=== PATIENT | male | born 1980 | race Caucasian/White ===

== ENCOUNTER → 2021-10-12 | Outpatient (CLI) | payer BC ==
[2021-10-12 14:23] LABS: Basophils # (A) 0.05 X 10*3/uL (0.00-0.10); Basophils % (A) 1.3 %; Eosinophils # (A) 0.09 X 10*3/uL (0.04-0.35); Eosinophils % (A) 2.4 %; HGB 16.1 g/dL (13.0-17.0); Immature Grans, Automated 0.3 %; Lymphocytes # (A) 1.25 X 10*3/uL (0.90-5.00); Lymphocytes % (A) 33.5 %; MCH 32.7 pg (27.0-32.0); MCHC 33.5 g/dL (32.0-37.0); MCV 97.6 fL (80.0-97.0); Monocytes # (A) 0.53 X 10*3/uL (0.20-1.00); Monocytes % (A) 14.2 %; NRBC Per 100 WBC 0 /100 WBCS (0.0-0.0); Neutrophils % (A) 48.3 %; Platelet Count 290 X 10*3/uL (140-440); RBC 4.92 X 10*6/uL (4.40-5.60); RDW 11.9 % (11.5-14.5); WBC 3.73 X 10*3/uL (4.50-10.00)
[2021-10-12 14:47] LABS: Carbon Dioxide 25.9 mmol/L (20.0-27.5); Potassium 4.3 mmol/L (3.5-5.5)
== END | disposition home or self-care (01) ==
LOC: LABPAT 08:16
PROVIDERS: ATTEND Orthopaedic Surgery
DX: Z01.812 Encounter for preprocedural laboratory examination (principal); M23.91 Unspecified internal derangement of right knee; M23.611 Other spontaneous disruption of anterior cruciate ligament of right knee
CPT/HCPCS: 80051; 85025

== ENCOUNTER 2021-10-22 05:58 | Day surgery (SDC) | payer BC ==
[2021-10-20 15:05] VITALS: BMI 26.6
--- NOTE | 2021-10-21 17:16 | HP ---
HISTORY AND PHYSICAL DATE OF SURGERY: 10/22/2021 Quinn Hernandez is a 41-year-old patient with progressive right knee pain and instability. We discussed options and he elected to proceed with right knee arthroscopy to include allograft, anterior cruciate ligament reconstruction and partial medial/lateral meniscectomy. Consent was obtained. PAST MEDICAL HISTORY: Noncontributory. SURGICAL HISTORY: ACL reconstruction. DAILY MEDICATIONS: None. ALLERGIES: NONE. SOCIAL HISTORY: He denies tobacco use. PHYSICAL EVALUATION OF THE RIGHT KNEE: His range of motion is zero to 130. Mild effusion. Tenderness along the medial joint line. Plus 2 to 3 Beatrice's, soft endpoint, positive pivot shift. Distal neurovascular exam intact. Radiographs of the right knee revealed evidence for previous ACL reconstruction with mild osteoarthritic changes. MRI of the right knee revealed ACL graft tear, medial meniscal tear, lateral meniscal tear, osteoarthritis and effusion. IMPRESSION: 1. Internal derangement of right knee with ACL tear, medial meniscal tear, lateral meniscal tear. 2. Right knee osteoarthritis. PLAN: Right knee arthroscopy with allograft, ACL reconstruction, partial medial/lateral meniscectomy and debridement. MMODL / IJN: [id number] /
[2021-10-22] MEDS ORDERED: ONDANSETRON 4 MG/2 ML VIAL ONE (06:28)
[2021-10-22] MEDS ORDERED: LACTATED RINGERS 1,000 ML IV ONE ×2 (06:38→09:22)
[2021-10-22] MEDS ORDERED: ONDANSETRON 4 MG/2 ML VIAL IVP ONE (06:55)
[2021-10-22] MEDS ORDERED: DEXAMETHASONE SOD PHOSPHATE 4 MG/ML 1 ML VIAL IVP ONE (06:56)
[2021-10-22] MEDS ORDERED: MIDAZOLAM 2 MG/2 ML VIAL IVP ONE (07:09)
[2021-10-22] MEDS ORDERED: HYDROmorphone (PF) 1 MG/ML ONE (07:35)
[2021-10-22] MEDS ORDERED: GLYCOPYRROLATE 0.2 MG/ML 2 ML VIAL ONE (07:35)
[2021-10-22] MEDS ORDERED: ROPIVACAINE 5 MG/ML 30 ML VIAL ONE (07:35)
[2021-10-22] MEDS ORDERED: fentaNYL (PF) 50 MCG/ML 2 ML AMP ONE (07:35)
[2021-10-22] MEDS ORDERED: DEXAMETHASONE SOD PHOSPHATE 4 MG/ML 1 ML VIAL ONE (07:35)
[2021-10-22] MEDS ORDERED: LIDOCAINE 2% INJ 20 MG/ML (2 ML VIAL) ONE (07:35)
[2021-10-22] MEDS ORDERED: PROPOFOL 10 MG/ML 20 ML VIAL IV ONE (07:35)
[2021-10-22] MEDS ORDERED: MIDAZOLAM 2 MG/2 ML VIAL ONE (07:35)
--- NOTE | 2021-10-22 08:30 | P.ANPRN ---
Procedure Note - Anesthesia - Nerve Block Performed Right Adductor Canal Time Out Performed: Yes (0708) Date of Procedure: 10/22/21 Procedure Start Time: :08 Procedure Stop Time: 07:14 Location of Patient: PreOp Indication: Acute Post-Operative Pain, Dx/Pain Location (Right knee) Specifically requested for management of pain by DrEtta: Po Ocasio Sedation Type: Sedate with meaningful contact maintained Preparation: Sterile Prep Position: Supine Catheter: None Needle Types: Pajunk Needle Gauge: 21 Ultrasound used to visualize needle placement: Yes Ultrasound used to observe medication spread: Yes Injectate: 0.5% Ropivacaine (see comment for volume) (30 cc and decadron 4 mg) Blood Aspirated: No Pain Paresthesia on Injection Noted: No Resistance on Injection: Normal Image Stored and Saved: Yes Events: Uneventful and Well Tolerated
[2021-10-22] MEDS: LACTATED RINGERS 1,000 ML IV ONE ×2 (09:22→09:30)
[2021-10-22 09:41] VITALS: TEMP 96.9
--- NOTE | 2021-10-22 09:46 | P.OP ---
Date of Procedure: 10/22/21 Preoperative Diagnosis: Internal derangement right knee Postoperative Diagnosis: 1. ACL tear right knee 2. Medial and lateral meniscal tears right knee 3. Grade 4 chondromalacia medial femoral condyle right knee Procedure(s) Performed: 1. Arthroscopic allograft ACL reconstruction right knee 2. Arthroscopic partial medial and lateral meniscectomy right knee 3. Arthroscopic microfracture medial femoral condyle right knee Implants: 2Arthrex Endobuttons 1Arthrex 4.75 swivel lock anchor Anesthesia: GETA, regional (Adductor canal block) Surgeon: Po Ocasio Nutritional Yeast Supervisor #1: Elias Jones Estimated Blood Loss (ml): 15 Pathology: none sent Condition: stable Disposition: PACU Indications for Procedure: 41-year-old patient seen with right knee pain and instability consistent with ACL tear and meniscal tear, we discussed options regarding treatment. He elected to proceed with arthroscopy to include allograft ACL reconstruction. Operative Findings: See description of procedure Description of Procedure: Patient was taken to the operative suite after having had an adductor canal block by the department of anesthesia for postoperative pain management. Pat ient underwent a general anesthetic by the department of anesthesia. Patient was given preoperative antibiotics. The right lower extremity was placed in a well-padded arthroscopic leg whitten. The right leg was prepped and draped in the normal sterile orthopedic fashion. A lateral parapatellar and suprapatellar incision was made. Trochars were inserted. Arthroscopy was initiated. Suprapatellar pouch reveals some synovitis. The patellofemoral joint appeared to articulate congruently. There was no chondromalacia present. The scope was guided into the medial gutter. No loose bodies or plica were identified. The scope was then guided into the medial compartment. A medial parapatellar incision was made. Trocar inserted followed by probe. There was a complex tear involving the posterior horn and midbody of the medial meniscus. There were grade 3/4 chondral malacia changes of medial femoral condyle and 1 area of grade 4 chondromalacia of the tibial plateau. There was some mild synovitis anteriorly. Scope and probe were then guided into the intercondylar notch. The ACL was absent. The PCL was stable. At this point Yassine YIP open the allograft on her back table and began preparing the allograft for implantation. I now guided the scope back into the medial compartment. I performed a partial medial meniscectomy getting down to stable meniscal tissue. I performed a chondroplasty medial femoral condyle getting down to stable osteochondral tissue. I did note about a 1 cm area of exposed bone medial femoral condyle.. The scope and probe were then guided into lateral compartment. There was a radial tear mid body lateral meniscus. There were grade 1 chondromalacia changes lateral compartment with no tears. I performed a partial lateral meniscectomy. The residual meniscus was stable. I guided the scope back into the intercondylar notch. I performed a notchplasty. At this point our graft was ready for implantation. Yassine YIP now assisted preparing the tunnels. We first inserted our femoral tunnel guide and passed our guidewire through and then overreamed the guidewire creating our femoral tunnel. I now placed her tibial tunnel cutting guide in position. I now with this is a Yassine YIP created our all inside tibial tunnel. I did note some previous soft tissue and our tunnel consistent with his history of previous ACL reconstruction. We meticulously debrided that out. We now brought our graft to the operative field. We now shoulder graft into our femoral tunnel visually flipping our Endobutton we now brought in the graft into the femoral tunnel it was stable secure. We now shuttled the tibial side of the graft into our tibial tunnel. We now took the knee into full extension and secured our tibial tunnel with a Arthrex Endobutton with good fixation noted. We did back this up with a Arthrex swivel lock anchor incorporating our internal brace. Residual suture limbs were clipped. Arthroscopy was initiated noting good positioning of our graft and good intraoperative stability. We now flush cut our femoral sided residual suture limbs. I now guided the scope back into the medial compartment. I performed a microfracture of medial femoral condyle treating the bone with resultant bleeding at the microfracture site. The residual osteochondral surface appeared stable. The scope was in guided back into the suprapatellar compartment. I introduced a motorized shaver into the suprapatellar compartment debrided any residual debris. Instruments were now removed from the joint. The portal sites and mini incisions were approximated with nylon suture. Sterile dressings were applied. The patient was placed into a LUIS hose. The right lower extremity was placed into a soft long brace. No tourniquet was utilized. Yassine YIP assisted in all aspects of the procedure. The patient was awakened, transferred to a bed and taken to recovery stable satisfactory condition.
[2021-10-22] MEDS ORDERED: HYDROmorphone 0.5 MG/0.5 ML SYRINGE IVP ONE ×3 (09:48→10:15)
[2021-10-22] MEDS ORDERED: KETOROLAC 15 MG/ML 1 ML VIAL IVP ONE (09:48)
[2021-10-22 10:37] VITALS: PULSE 55; RESP 18
[2021-10-22 10:41] VITALS: BP 147/89
== END 2021-10-22 11:26 | disposition home or self-care (01) ==
LOC: OR 05:58
PROVIDERS: ATTEND Orthopaedic Surgery
DX: S83.241A Other tear of medial meniscus, current injury, right knee, initial encounter (principal); S83.281A Other tear of lateral meniscus, current injury, right knee, initial encounter; M94.261 Chondromalacia, right knee; G89.18 Other acute postprocedural pain
CPT/HCPCS: 29822; 29879; 29880; 29888; 64447; 76942; C1713 ×5; C1762; J2250; J1100; J0690; J2405; J3010; J1170 ×2; J2795; J1885; J2704; J2001